=== PATIENT | female | born 1990 | race Two or more races ===

== ENCOUNTER 2019-02-17 20:48 | Emergency (ER) | payer SELFPAY ==
[~2019-02-17] VITALS: Ht 157.5 cm; Wt 79.0 kg
[~2019-02-17 20:48] MED LIST: PREN-88 PO
[2019-02-18] VITALS: BP 124/73
[2019-02-18] MEDS ORDERED: KETOROLAC 60MG/2ML VIAL IM STA
[2019-02-18] MEDS ORDERED: PENICILLIN G BENZATHINE 1,200,000 UNITS/2ML SYR IM ONE
== END 2019-02-18 00:45 | disposition home or self-care (01) ==
LOC: ER 20:48
DX: J03.90 Acute tonsillitis, unspecified (principal); F12.10 Cannabis abuse, uncomplicated
CPT/HCPCS: 81025; 96372; 99283; J0561; J1885; Z7610

== ENCOUNTER 2019-04-08 20:49 | Emergency (ER) | payer SELFPAY ==
[~2019-04-08] VITALS: Ht 157.5 cm; Wt 77.0 kg
[2019-04-09 03:00] VITALS: BP 118/63
== END 2019-04-09 03:52 | disposition home or self-care (01) ==
LOC: ER 20:49
DX: S09.8XXA Other specified injuries of head, initial encounter (principal); V47.6XXA Car passenger injured in collision with fixed or stationary object in traffic accident, initial encounter; Y93.89 Activity, other specified; Y92.410 Unspecified street and highway as the place of occurrence of the external cause
CPT/HCPCS: 81025; 99284